=== PATIENT | female | born 1990 | race American Indian/Alaskan Native ===

== ENCOUNTER 2018-02-04 17:28 | Emergency (ER) | payer OTHER ==
[2018-02-04 17:45] VITALS: BP 166/99
[2018-02-04] MEDS ORDERED: ASPIRIN PO ONE (17:48)
[2018-02-04 19:43] LABS: INR 1.03 (0.87-1.13)
[2018-02-04 19:44] LABS: Partial Thromboplastin Time 30.9 Sec. (24.2-36.6)
[2018-02-04 19:49] LABS: BUN/Creatinine Ratio 6; Blood Urea Nitrogen 6 mg/dL (7-17); Calcium 9.8 mg/dL (8.4-10.2); Hematocrit 32.9 % (30.3-42.9); Hemoglobin 10.9 gm/dl (10.1-14.3); Hemolysis Index 28; Mean Corpuscular HGB Conc 33 % (30-34); Mean Corpuscular Hemoglobin 27 pg (28-32); Mean Corpuscular Volume 82 fl (79-97); Platelet Count 193 K/mm3 (140-440); Red Blood Count 3.99 M/mm3 (3.65-5.03); Red Cell Distribution Width 15.8 % (13.2-15.2)
[2018-02-04 19:52] LABS: Basophils % (Auto) 0.5 % (0.0-1.8); Eosinophils % (Auto) 2.5 % (0.0-4.3); Lymphocytes % (Auto) 29.2 % (13.4-35.0); Monocytes % (Auto) 8.2 % (0.0-7.3)
[2018-02-04 19:53] LABS: Eosinophils # (Auto) 0.1 K/mm3 (0.0-0.4); Lymphocytes # (Auto) 1.5 K/mm3 (1.2-5.4); Monocytes # (Auto) 0.4 K/mm3 (0.0-0.8)
[2018-02-04] MEDS ORDERED: ALUM-MAG HYDROX-SIMETH 200-200-20MG/5ML PO ONE (20:39)
[2018-02-04] MEDS ORDERED: K-DUR PO ONE (21:14)
--- NOTE | 2018-02-04 21:37 | Emergency Department Report ---
ED General Adult HPI - General Chief complaint: Chest Pain Stated complaint: CHEST PAIN/VOMITING BLOOD Time Seen by Provider: 02/04/18 20:19 Source: patient Mode of arrival: Ambulatory Limitations: No Limitations - History of Present Illness Initial comments: Ms lantigua is a 28 year-old woman with extensive reported PMH who presents with complaint of hematemesis. [place] and had three episodes of bright red hematemsis. Associated with substernal chest pain that does not radiate. Some pain with deep breathing. Allergic to aspirin. 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 All of her medical records are in [place]. of note, patient was seen within the last 2 weeks at [facility] for the same complaint. Patient signed release of records. No evidence of hematemesis as inpatient. had normal EGD. patient initially said she did not have an EGD, however then told us she had a seizure and must have forgotten. No evidence of metastatic disease on work-up. normal MRI brain. Patient without any vomiting here in ED. - Related Data Allergies Allergy/AdvReac Type Severity Reaction Status Date / Time acetaminophen Allergy Angioedema Verified 02/04/18 17:46 ibuprofen Allergy Angioedema Verified 02/04/18 17:46 oxycodone [From Percocet] Allergy Hives Verified 02/04/18 17:46 Penicillins Allergy Hives Verified 02/04/18 17:46 tramadol Allergy Hives Verified 02/04/18 17:46 ED Review of Systems ROS: Stated complaint: CHEST PAIN/VOMITING BLOOD Other details as noted in HPI Comment: All other systems reviewed and negative ED Past Medical Hx - Past Medical History Additional medical history: DVT'S,PE-2018 x3 separate times, CAD, chemo and radiation [id number] 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 Absent: tenderness, meningismus, lymphadenopathy - Respiratory Respiratory exam: Present: normal lung sounds bilaterally. Absent: respiratory distress, wheezes, rales, rhonchi - Cardiovascular Cardiovascular Exam: Present: regular rate, normal rhythm, normal heart sounds - GI/Abdominal GI/Abdominal exam: Present: soft. Absent: distended, tenderness, guarding, rebound - Extremities Exam Extremities exam: Present: normal inspection, full ROM. Absent: tenderness - Back Exam Back exam: Present: normal inspection. Absent: tenderness - Neurological Exam Neurological exam: Present: alert, oriented X3 - Psychiatric Psychiatric exam: Present: normal affect, normal mood - Skin Skin exam: Present: warm, dry, intact ED Course Vital Signs 02/04/18 02/04/18 17:39 21:51 Temperature 98.6 F Pulse Rate 105 H Respiratory 18 14 Rate Blood Pressure 166/99 O2 Sat by Pulse 98 98 Oximetry ED Medical Decision Making - Lab Data Result diagrams: 02/04/18 19:05 02/04/18 19:05 Lab Results 02/04/18 02/04/18 02/04/18 Range/Units 19:05 19:05 19:05 WBC 5.1 (4.5-11.0) K/mm3 RBC 3.99 (3.65-5.03) M/mm3 Hgb 10.9 (10.1-14.3) gm/dl Hct 32.9 (30.3-42.9) % MCV 82 (79-97) fl MCH 27 L (28-32) pg MCHC 33 (30-34) % RDW 15.8 H (13.2-15.2) % Plt Count 193 (140-440) K/mm3 Lymph % (Auto) 29.2 (13.4-35.0) % Rosebud % (Auto) 8.2 H (0.0-7.3) % Eos % (Auto) 2.5 (0.0-4.3) % Baso % (Auto) 0.5 (0.0-1.8) % Lymph # 1.5 (1.2-5.4) K/mm3 Rosebud # 0.4 (0.0-0.8) K/mm3 Eos # 0.1 (0.0-0.4) K/mm3 Baso # 0.0 (0.0-0.1) K/mm3 Add Manual Diff Complete Seg Neutrophils % 59.6 (40.0-70.0) % Seg Neutrophils # 3.0 (1.8-7.7) K/mm3 PT 14.0 (12.2-14.9) Sec. INR 1.03 (0.87-1.13) APTT 30.9 (24.2-36.6) Sec. D-Dimer < 135 (0-234) ng/mlDDU Sodium 139 (137-145) mmol/L Potassium 3.5 L (3.6-5.0) mmol/L Chloride 99.1 (98-107) mmol/L Carbon Dioxide 22 (22-30) mmol/L Anion Gap 21 mmol/L BUN 6 L (7-17) mg/dL Creatinine 1.0 (0.7-1.2) mg/dL Estimated GFR > 60 ml/min BUN/Creatinine Ratio 6 % Glucose 82 (65-100) mg/dL Calcium 9.8 (8.4-10.2) mg/dL Troponin T < 0.010 (0.00-0.029) ng/mL 02/04/18 Range/Units 21:10 WBC (4.5-11.0) K/mm3 RBC (3.65-5.03) M/mm3 Hgb (10.1-14.3) gm/dl Hct (30.3-42.9) % MCV (79-97) fl MCH (28-32) pg MCHC (30-34) % RDW (13.2-15.2) % Plt Count (140-440) K/mm3 Lymph % (Auto) (13.4-35.0) % Rosebud % (Auto) (0.0-7.3) % Eos % (Auto) (0.0-4.3) % Baso % (Auto) (0.0-1.8) % Lymph # (1.2-5.4) K/mm3 Rosebud # (0.0-0.8) K/mm3 Eos # (0.0-0.4) K/mm3 Baso # (0.0-0.1) K/mm3 Add Manual Diff Seg Neutrophils % (40.0-70.0) % Seg Neutrophils # (1.8-7.7) K/mm3 PT (12.2-14.9) Sec. INR (0.87-1.13) APTT (24.2-36.6) Sec. D-Dimer (0-234) ng/mlDDU Sodium (137-145) mmol/L Potassium (3.6-5.0) mmol/L Chloride (98-107) mmol/L Carbon Dioxide (22-30) mmol/L Anion Gap mmol/L BUN (7-17) mg/dL Creatinine (0.7-1.2) mg/dL Estimated GFR ml/min BUN/Creatinine Ratio % Glucose (65-100) mg/dL Calcium (8.4-10.2) mg/dL Troponin T < 0.010 (0.00-0.029) ng/mL - EKG Data 02/04/18 17:35 HR 95, sinus, normal axis, intervals wnl, no ST changes concerning for acute ischemia 02/04/18 21:45 HR 67, sinus, normal axis, intervals wnl, no ST changes concerning for acute ischemia, unchanged from previous - Radiology Data EXAM: XR CHEST ROUTINE 2V HISTORY: hematemesis TECHNIQUE: 2 views of the chest. PRIORS: None. FINDINGS: The cardiac silhouette is enlarged. Pulmonary vascularity appears normal. The lungs are clear. The bones and soft tissues are unremarkable. IMPRESSION: Cardiomegaly. - Medical Decision Making Ms lantigua is a 28 year-old woman who presents with hematemsis. None here in ED. Previous ED visit for hematemesis, normal EGD within the last two weeks. Again no vomiting noted while inpatient either. Exam unremarkable. VSS. Hgb 10.9. Trop negative x 2. EKG non-ischemic x 2. Has remained with stable vitals. no evidence of ACS. no evidence of PTX or pneumonia or ruptured esophagus. D- dimer negative and on eliquis, very low suspicion of PE. No evidence of vomiting or GI bleeding. Normal EGD within the last two weeks. Encourage continued follow-up and to return for further vomiting. Safe for dc to home. Endorses understanding of return precautions. VSS. Full medical records faxed from [facility]. They reached out to treating oncologist in [place] who has no record of her as a patient. Spoke with oncologist at [place] who also denies having her as a patient. Spoke with family in [place] who report no known breast CA or service. She was taken off eliquis upon hospital discharge. She had EEG and MRI, no evidence of seizures or abnormality on imaging. No PE or DVT on duplex. Normal EGD. very thorough inpatient work-up. Hgb unchanged from inpatient at [facility]. Critical care attestation.: If time is entered above; I have spent that time in minutes in the direct care of this critically ill patient, excluding procedure time. ED Disposition Clinical Impression: Hematemesis with nausea Chest pain Qualifiers: Chest pain type: other chest pain Qualified Code(s): R07.89 - Other chest pain Disposition: DC-01 TO HOME OR SELFCARE Is pt being admited?: No Does the pt Need Aspirin: No Condition: Stable Instructions: Chest Pain (ED), Acute Nausea and Vomiting (ED) Referrals: PRIMARY CARE, [Primary Care Provider] - 3-5 Days
--- NOTE | 2018-02-04 22:24 | XRay Report ---
FINAL REPORT EXAM: XR CHEST ROUTINE 2V HISTORY: hematemesis TECHNIQUE: 2 views of the chest. PRIORS: None. FINDINGS: The cardiac silhouette is enlarged. Pulmonary vascularity appears normal. The lungs are clear. The bones and soft tissues are unremarkable. IMPRESSION: Cardiomegaly.
== END 2018-02-04 23:49 | disposition home or self-care (01) ==
LOC: ED 17:28
DX: K92.0 Hematemesis (principal); R07.89 Other chest pain; Z88.6 Allergy status to analgesic agent; Z88.0 Allergy status to penicillin; Z88.8 Allergy status to other drugs, medicaments and biological substances
CPT/HCPCS: 36415; 71046; 80048; 84484; 85025; 85379; 85610; 85730; 93005; 93010; 99284

== ENCOUNTER 2018-02-05 03:10 | Emergency (ER) | payer OTHER ==
[2018-02-05] MEDS ORDERED: ASPIRIN PO ONE (03:32)
[2018-02-05] MEDS ORDERED: CATAPRES PO ONE ×2 (03:35→04:37)
[2018-02-05 04:07] LABS: Basophils % (Auto) 0.6 % (0.0-1.8); Eosinophils # (Auto) 0.1 K/mm3 (0.0-0.4); Eosinophils % (Auto) 3.6 % (0.0-4.3); Hematocrit 33.6 % (30.3-42.9); Lymphocytes # (Auto) 1.7 K/mm3 (1.2-5.4); Lymphocytes % (Auto) 40.2 % (13.4-35.0); Mean Corpuscular HGB Conc 33 % (30-34); Mean Corpuscular Hemoglobin 26 pg (28-32); Mean Corpuscular Volume 81 fl (79-97); Monocytes # (Auto) 0.3 K/mm3 (0.0-0.8); Monocytes % (Auto) 7.4 % (0.0-7.3); Platelet Count 211 K/mm3 (140-440); Red Blood Count 4.15 M/mm3 (3.65-5.03); Red Cell Distribution Width 15.5 % (13.2-15.2)
[2018-02-05 04:17] LABS: INR 0.93 (0.87-1.13); Partial Thromboplastin Time 29.1 Sec. (24.2-36.6)
[2018-02-05 04:21] LABS: BUN/Creatinine Ratio 6; Blood Urea Nitrogen 5 mg/dL (7-17); Calcium 9.6 mg/dL (8.4-10.2); Hemolysis Index 0
--- NOTE | 2018-02-05 04:40 | Emergency Department Report ---
HPI - General Chief Complaint: Chest Pain Time Seen by Provider: 02/05/18 04:25 - HPI HPI: The patient is a 28-year-old female presents for evaluation of chest pain. The patient reports constant chest pain for greater than the past 8 hours, midsternal, 10/10 in severity, sharp in quality, and worsened with dry heaving. She also reports nausea and one episode of emesis. The patient denies fever, cough, syncope, dyspnea, hemoptysis, unilateral leg swelling, oral contraceptive use, recent immobilization. 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 - Surgical History Hx Appendectomy: Yes Additional Surgical History: L-2 and L-3 cancerous lesion, ovarian cyst, left axillary lymph nodes removed, left breast lumpectomy - Social History Smoking Status: Never Smoker Substance Use Type: None - Medications Home Medications: Home Medications Medication Instructions Recorded Confirmed Last Taken Type Hydrochlorothiazide [HCTZ] 25 mg PO QDAY #30 tablet 02/05/18 Unknown Rx ED Review of Systems ROS: Stated complaint: CHEST PAIN,VOMITING Other details as noted in HPI Constitutional: denies: fever ENT: denies: throat or neck pain Respiratory: denies: cough, shortness of breath Cardiovascular: reports: chest pain Endocrine: denies unexplained weight loss or gain Gastrointestinal: denies: abdominal pain, nausea Genitourinary: denies: dysuria Musculoskeletal: denies: leg swelling Skin: denies: rash Neurological: denies: headache Hematological/Lymphatic: denies: easy bleeding or easy bruising Psych: denies sadness or hopelessness Physical Exam - Physical Exam Vital Signs: Vital Signs 02/05/18 03:50 Pulse Rate 84 Blood Pressure 199/145 Physical Exam: General: well-nourished, well-developed, no acute distress Head: Normocephalic, atraumatic Eyes: normal sclera ENT: Mucous membranes are pink and moist Neck: trachea midline, neck supple, No neck stiffness, no cervical adenopathy Respiratory: Breath sounds equal bilaterally, no wheezing, rales, or rhonchi Cardio: S1 and S2 present, no murmurs, rubs, gallops, capillary refill is brisk Abdomen: Normoactive bowel sounds, soft abdomen, no rigidity, no guarding or rebound tenderness Chest WALL/Back: No tenderness to palpation of the chest wall, no CVA tenderness with percussion Musc: No pitting edema Skin: No rash Neuro: no facial drooping, normal speech Psych: Normal affect ED Course Vital Signs 02/05/18 03:50 Pulse Rate 84 Blood Pressure 199/145 ED Medical Decision Making - Lab Data Result diagrams: 02/05/18 03:41 02/05/18 03:41 - Medical Decision Making The patient was seen and examined by myself. The patient is placed on a compliance monitor and continuous pulse ox. On initial evaluation, the patient was found to be in no distress. EKG was negative for findings suggestive of acute cardiac infarct. Labs and imaging are obtained. The patient is given a tablet of clonidine for her elevated blood pressure and an IM injection for her chest pain. Lab results were non-concerning including levels of troponin, WBC, hemoglobin, hematocrit, electrolytes, renal function. Medical records are reviewed and revealed that the patient falsely reported histories of cancer and blood clots at [facility]. Additionally the patient received very thorough workup during hospital admission at [facility] recently, including imaging ruling out DVT or PE. The patient received chest x-ray at this ED earlier tonight. X-ray was reviewed by myself and was negative. As the patient has a VIANEY risk score less than 2, and a well's score less than 2, the patient is at low risk of ACS or pulmonary emboli etiology of their symptoms. The patient is stable for discharge with outpatient follow-up. The patient is given follow-up and return instructions. The patient expressed understanding and agreed with the plan. The patient is discharged in stable condition. Critical care attestation.: If time is entered above; I have spent that time in minutes in the direct care of this critically ill patient, excluding procedure time. ED Disposition Clinical Impression: Hypertensive urgency, Acute chest pain Disposition: - TO HOME OR SELFCARE Is pt being admited?: No Does the pt Need Aspirin: No Condition: Stable Instructions: Chest Pain (ED), Hypertension (ED) Prescriptions: Hydrochlorothiazide [HCTZ] 25 mg PO QDAY #30 tablet Referrals: [facility] [Outside] - 3-5 Days Time of Disposition: 04:39
[2018-02-05] MEDS ORDERED: NORCO 5/325 PO ONE (04:45)
[2018-02-05] MEDS ORDERED: ZOFRAN ODT PO ONE (04:45)
[2018-02-05] MEDS ORDERED: MORPHINE IM ONE (04:46)
[2018-02-05] MEDS ORDERED: BENADRYL PO ONE (04:47)
[2018-02-05] MEDS ORDERED: NITROSTAT SL ONE (04:53)
[2018-02-05 05:38] VITALS: BP 121/83
== END 2018-02-05 05:44 | disposition home or self-care (01) ==
LOC: ED 03:10
DX: I10 Essential (primary) hypertension (principal); R07.89 Other chest pain; J45.909 Unspecified asthma, uncomplicated; Z86.711 Personal history of pulmonary embolism; Z86.718 Personal history of other venous thrombosis and embolism; Z90.49 Acquired absence of other specified parts of digestive tract; Z85.3 Personal history of malignant neoplasm of breast
CPT/HCPCS: 36415; 80048; 84484; 84703; 85025; 85610; 85730; 93005; 93010; 96372; 99284; J2270; Q0162

== ENCOUNTER 2019-05-08 16:23 | Inpatient (IN) | payer OTHER ==
--- NOTE | 2019-05-08 16:47 | Emergency Department Report ---
Blank Doc - Documentation Documentation: 29-year-old female that presents with chest pain, SOB, and vomiting bright red colored blood. Stated has radiation to left arm. This initial assessment/diagnostic orders/clinical plan/treatment(s) is/are subject to change based on patient's health status, clinical progression and re- assessment by fellow clinical providers in the ED. Further treatment and workup at subsequent clinical providers discretion. Patient/guardians urged not to elope from the ED as their condition may be serious if not clinically assessed and managed. Initial orders include: 1- Patient sent to MAIN ED for further evaluation and treatment 2- labs 3- EKG 4- CXR
[2019-05-08 18:01] LABS: Alanine Aminotransferase 17 units/L (7-56); Albumin 4.4 g/dL (3.9-5); BUN/Creatinine Ratio 15; Blood Urea Nitrogen 12 mg/dL (7-17); Calcium 9.5 mg/dL (8.4-10.2); Hemolysis Index 9
[2019-05-08 18:07] LABS: Hematocrit 39.9 % (30.3-42.9); Hemoglobin 12.8 gm/dl (10.1-14.3); Mean Corpuscular HGB Conc 32 % (30-34); Mean Corpuscular Volume 81 fl (79-97); Platelet Count 202 K/mm3 (140-440); Red Blood Count 4.93 M/mm3 (3.65-5.03); Red Cell Distribution Width 16.4 % (13.2-15.2)
--- NOTE | 2019-05-08 18:17 | Event Note ---
ED Screening Note ED Screening Note: PT COMES TO ER WITH CHEST, ABD AND BACK PAIN SHE IS UNDER THE CARE OF DR ARANA AT [facility] FOR STAGE 3-4 BREAST CA DX IN 2013 THEN BACK IN 2015 ON XELOTA HAD RAD LAST THEY ARE ABOUT TO CHANGE HER TO ANOTHER CHEMO PSH LYMPH NODE REMOVAL R BREAST TUMOR REMOVED FROM L2L3 BACK OVARIAN CYST REMOVAL [place] PMH CAD - DETAILS UNKNOWN- PT STATES CATHETER WAS INSERTED BETWEEN RIBS AND THEY TOLD HER SHE HAD CAD-- AT [facility] PE 8- IVC FILTER HTN ASTHMA SZ DISORDER- STRESS INDUCED RX DEPAKOTE COUMADIN XERLOTA LOVENOX IF NEEDED ALBUTEROL LOPRESSOR LABS PENDING GIVEN HX CTA ORDERED This initial assessment/diagnostic orders/clinical plan/treatment(s) is/are subject to change based on patients health status, clinical progression and re- assessment by fellow clinical providers in the ED. Further treatment and workup at subsequent clinical providers discretion. Patient/guardian urged not to elope from the ED as their condition may be serious if not clinically assessed and managed. Initial orders include:
[2019-05-08 18:19] LABS: INR 0.85 (0.87-1.13)
[2019-05-08 18:20] LABS: Partial Thromboplastin Time 28.2 Sec. (24.2-36.6)
--- NOTE | 2019-05-08 18:56 | Emergency Department Report ---
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 Patient reports onset of symptoms on yesterday. Chest pain is sharp, left-sided, radiating to the left arm and left neck. Patient states pain is worse when lying flat. She reports left lower leg pain as well. States she is currently on Coumadin and Lovenox. Patient states she had one episode of hematemesis, denies any bloody stools. Patient reports she had a heart cath 8 years ago following a cardiac arrest, status post stents repl aced, no pacer or defibrillator was placed. Patient reports she had an abnormal stress test recently. States took nitro without relief. -: days(s) (2) Onset: during rest Pain Location: left chest Pain Radiation: LUE, neck Severity: moderate Severity scale (0 -10): 7 Quality: sharp Consistency: intermittent Improves With: nothing Worsens With: supine re: nausea, vomting (reports hematemesis), dyspnea. denies: diaphoresis Other Symptoms: denies: cough, fever - Related Data Home Medications Medication Instructions Recorded Confirmed Last Taken Albuterol Sulfate [Proventil Hfa] 6.7 gm IH PRN 05/09/19 05/09/19 Unknown Apixaban [Eliquis] 5 mg PO BID 05/09/19 05/09/19 Unknown Capecitabine [Xeloda] 250 mg PO DAILY 05/09/19 05/09/19 Unknown Carvedilol [Coreg] 12.5 mg PO BID 05/09/19 05/09/19 Unknown Divalproex ER [DepaKOTE ER] 500 mg PO BID 05/09/19 05/09/19 Unknown Lisinopril [Zestril] 20 mg PO QDAY 05/09/19 05/09/19 Unknown Metoprolol [Lopressor TAB] 37.5 mg PO BID 05/09/19 05/09/19 Unknown Zolpidem [Ambien] 5 mg PO QHS PRN 05/09/19 05/09/19 Unknown Allergies Allergy/AdvReac Type Severity Reaction Status Date / Time acetaminophen Allergy Angioedema Verified 02/04/18 17:46 ibuprofen Allergy Angioedema Verified 02/04/18 17:46 oxycodone [From Percocet] Allergy Hives Verified 02/04/18 17:46 Penicillins Allergy Hives Verified 02/04/18 17:46 tramadol Allergy Hives Verified 02/04/18 17:46 Heart Score - HEART Score History: Moderately suspicious EKG: Non-specific Age: < 45 Risk factors: > 3 risk factors or hx of atherosclerotic disease Troponin: < normal limit HEART Score: 4 ED Review of Systems ROS: Stated complaint: CHEST/BACK/ABD PAIN Other details as noted in HPI Comment: All other systems reviewed and negative Constitutional: denies: chills, fever Respiratory: shortness of breath. denies: cough Cardiovascular: chest pain Gastrointestinal: nausea, hematemesis. 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 - Surgical History Past Surgical History?: Yes Hx Appendectomy: Yes Additional Surgical History: L-2 and L-3 cancerous lesion, ovarian cyst, left axillary lymph nodes removed, left breast lumpectomy - Social History Smoking Status: Never Smoker Substance Use Type: None - Medications Home Medications: Home Medications Medication Instructions Recorded Confirmed Last Taken Type Albuterol Sulfate [Proventil Hfa] 6.7 gm IH PRN 05/09/19 05/09/19 Unknown History Apixaban [Eliquis] 5 mg PO BID 05/09/19 05/09/19 Unknown History Capecitabine [Xeloda] 250 mg PO DAILY 05/09/19 05/09/19 Unknown History Carvedilol [Coreg] 12.5 mg PO BID 05/09/19 05/09/19 Unknown History Divalproex ER [DepaKOTE ER] 500 mg PO BID 05/09/19 05/09/19 Unknown History Lisinopril [Zestril] 20 mg PO QDAY 05/09/19 05/09/19 Unknown History Metoprolol [Lopressor TAB] 37.5 mg PO BID 05/09/19 05/09/19 Unknown History Zolpidem [Ambien] 5 mg PO QHS PRN 05/09/19 05/09/19 Unknown History ED Physical Exam - General Limitations: No Limitations General appearance: alert, in no apparent distress - Head Head exam: Present: atraumatic, normocephalic - Eye Eye exam: Present: normal appearance, PERRL, EOMI - ENT ENT exam: Present: mucous membranes moist - Neck Neck exam: Present: normal inspection - Respiratory Respiratory exam: Present: normal lung sounds bilaterally. Absent: respiratory distress - Cardiovascular Cardiovascular Exam: Present: regular rate, normal rhythm - GI/Abdominal GI/Abdominal exam: Present: soft. Absent: distended, tenderness - Extremities Exam Extremities exam: Present: calf tenderness (on left) - Neurological Exam Neurological exam: Present: alert, oriented X3 - Psychiatric Psychiatric exam: Present: normal affect, normal mood - Skin Skin exam: Present: warm, dry, intact, normal color ED Course Vital Signs 05/08/19 05/08/19 05/08/19 16:32 17:50 17:59 Temperature 98.6 F Pulse Rate 79 73 78 Respiratory 16 13 16 Rate Blood Pressure 190/121 Blood Pressure 240/147 [Right] O2 Sat by Pulse 100 100 100 Oximetry 05/08/19 05/08/19 05/08/19 18:00 18:16 18:30 Temperature Pulse Rate 75 76 64 Respiratory 12 19 16 Rate Blood Pressure 240/147 212/146 Blood Pressure [Right] O2 Sat by Pulse 99 99 99 Oximetry 05/08/19 05/08/19 05/08/19 18:46 19:00 19:16 Temperature Pulse Rate 76 60 73 Respiratory 11 L 10 L 18 Rate Blood Pressure 211/139 235/159 175/135 Blood Pressure [Right] O2 Sat by Pulse 98 99 98 Oximetry 05/08/19 05/08/19 05/08/19 19:30 19:45 20:00 Temperature Pulse Rate 83 80 69 Respiratory 12 14 20 Rate Blood Pressure 177/144 172/114 172/114 Blood Pressure [Right] O2 Sat by Pulse 99 95 98 Oximetry 05/08/19 05/08/19 05/08/19 20:16 20:30 20:45 Temperature Pulse Rate 74 70 81 Respiratory 10 L 9 L 11 L Rate Blood Pressure 183/108 182/121 156/119 Blood Pressure [Right] O2 Sat by Pulse 98 94 97 Oximetry 05/08/19 05/08/19 05/08/19 21:00 21:16 21:30 Temperature Pulse Rate 69 69 75 Respiratory 15 13 32 H Rate Blood Pressure 156/119 172/119 172/119 Blood Pressure [Right] O2 Sat by Pulse 96 98 94 Oximetry 05/08/19 05/08/19 05/08/19 21:46 22:00 22:50 Temperature Pulse Rate 83 81 77 Respiratory 13 11 L 17 Rate Blood Pressure 171/85 190/144 165/108 Blood Pressure [Right] O2 Sat by Pulse 97 97 96 Oximetry 05/08/19 05/08/19 05/08/19 23:00 23:16 23:30 Temperature Pulse Rate 75 80 87 Respiratory 13 11 L 15 Rate Blood Pressure 165/108 141/112 141/112 Blood Pressure [Right] O2 Sat by Pulse 100 97 97 Oximetry 05/08/19 05/09/19 05/09/19 23:46 00:00 00:04 Temperature Pulse Rate 83 82 82 Respiratory 13 12 13 Rate Blood Pressure 173/108 165/126 165/126 Blood Pressure [Right] O2 Sat by Pulse 96 98 99 Oximetry 05/09/19 05/09/19 05/09/19 00:22 00:30 00:40 Temperature Pulse Rate 77 74 74 Respiratory 14 24 15 Rate Blood Pressure 139/93 151/104 200/168 Blood Pressure [Right] O2 Sat by Pulse 98 100 98 Oximetry 05/09/19 00:50 Temperature Pulse Rate 74 Respiratory 26 H Rate Blood Pressure 200/168 Blood Pressure [Right] O2 Sat by Pulse 98 Oximetry ED Medical Decision Making - Lab Data Result diagrams: 05/08/19 17:14 05/08/19 17:14 - EKG Data -: EKG Interpreted by Me EKG shows normal: sinus rhythm, QRS complexes, ST-T waves Rate: normal - EKG Data Interpretation: no acute changes, other (occasional PVCs present) - Radiology Data Radiology results: report reviewed, image reviewed - Medical Decision Making 29-year-old female with extensive past medical history presents to ED with chest pain or shortness of breath. O2 sats normal, no respiratory distress. History of DVT and PE in the past, currently with IVC filter, and taking Lovenox and Coumadin. INR is subtherapeutic. VQ scan shows low probability for PE. Troponin negative 2, EKG shows no ST changes. Patient with hypertensive emergency. Blood pressure improved with hydralazine and labetalol. She also reported an episode of hematemesis home. No hematemesis here in ED, pt showed me a cellphone picture of blood clots that she vomited earlier today. Hemoglobin is normal. Patient given Protonix. Will admit to hospitalist, Dr Kearns, for further management. - Differential Diagnosis HTN emergency, ACS, PE, pneumonia, gastric ulcer Critical Care Time: Yes Critical care time in (mins) excluding proc time.: 35 Critical care attestation.: If time is entered above; I have spent that time in minutes in the direct care of this critically ill patient, excluding procedure time. Critical Care Time: 35 min ED Disposition Clinical Impression: Hypertensive emergency, Acute chest pain, Upper GI bleed Disposition: OP ADMIT IP TO THIS HOSP Is pt being admited?: Yes Condition: Stable Time of Disposition: 23:37
[2019-05-08] MEDS ORDERED: DILAUDID IV ONE ×2 (18:57→22:52)
[2019-05-08] MEDS ORDERED: APRESOLINE IV ONE ×2 (18:57→21:07)
[2019-05-08] MEDS ORDERED: BENADRYL IV ONE ×2 (18:57→22:52)
--- NOTE | 2019-05-08 19:42 | XRay Report ---
CHEST 1 VIEW INDICATION / CLINICAL INFORMATION: chest pain. COMPARISON: 02/04/2018 FINDINGS: SUPPORT DEVICES: None. HEART / MEDIASTINUM: Minimally enlarged but stable. LUNGS / PLEURA: No significant pulmonary or pleural abnormality. No pneumothorax. ADDITIONAL FINDINGS: No significant additional findings. IMPRESSION: 1. No significant change Signer Name: Hari Mock MD Signed: 05/08/2019 7:38 PM Workstation Name: [id number]
[2019-05-08 21:26] LABS: Basophils % (Manual) 0 % (0.0-1.8); Total Cells Counted 100
[2019-05-08 21:27] LABS: Anisocytosis 1+; Hypochromasia 1+; Ovalocytes Few; Platelet Estimate Consistent w Auto
--- NOTE | 2019-05-08 23:12 | Nuclear Medicine Report ---
NM lung scan perf/vent INDICATION / CLINICAL INFORMATION: sob, chest pain, hx of PE. TECHNIQUE: Dose / Agent / Route: 4.66mCi technetium 99m MAA IV and 17.32mCi xenon-133 inhaled COMPARISON: 05/08/2019 chest x-ray FINDINGS: No segmental or subsegmental perfusion defects. Ventilation images are normal. IMPRESSION: 1. Both ventilation and perfusion images are normal. Low probability for pulmonary embolism Signer Name: Olvin Mancilla MD Signed: 05/08/2019 11:07 PM Workstation Name: [id number]
[2019-05-08] MEDS ORDERED: NORMODYNE IV ONE (23:37)
[2019-05-08] MEDS ORDERED: PROTONIX IV ONE (23:39)
[2019-05-09] MEDS ORDERED: NORMODYNE IV ONE (00:14)
[2019-05-09] MEDS ORDERED: PROTONIX IV ONE (00:14)
[2019-05-09] MEDS ORDERED: NITROSTAT SL PRN (01:15)
[2019-05-09] MEDS ORDERED: ZOFRAN IV PRN (01:19)
[2019-05-09] MEDS: KCL 10MEQ/100ML 10 MEQ/100 ML BAG IV SCH ×2 (03:03→05:06)
[2019-05-09] MEDS ORDERED: KCL 20 MEQ in NACL 0.9% 250ML 250 ML IV ONE (03:15)
[2019-05-09] MEDS: BENADRYL IV PRN ×2 (03:17→08:52)
[2019-05-09] MEDS: DILAUDID IV PRN ×2 (03:17→08:01)
--- NOTE | 2019-05-09 05:36 | History and Physical Report ---
CHIEF COMPLAINT: Chest pain. Other complaint includes hematemesis and abdominal pain. HISTORY OF PRESENT ILLNESS: The patient is a 29-year-old female who presented to the Emergency Room with complaint of chest pain. The patient said the pain is sharp in consistency and located in the precordial area and radiating to the left arm and left side of the neck and pain is worse when she lays flat on the bed. There is also a history of left leg pain as well and the patient complained about hematemesis and said that she is currently taking Coumadin and Lovenox because of multiple history of PE and DVT in the past. The patient denied history of hematochezia or melena and said that she had a cardiac catheterization done about 8 years ago following cardiac arrest. The patient denies history of cough and complained about associated shortness of breath. PAST MEDICAL HISTORY: Past medical history is pertinent for pulmonary embolism, deep vein thrombosis, cardiac arrest, coronary artery disease, asthma, metastatic breast cancer, hypertension, and seizure disorder. PAST SURGICAL HISTORY: Past surgical history is pertinent for appendectomy, surgery in the second and third lumbar costovertebral area because of cancerous metastasis. Also, the patient has had ovarian cyst removal and left axillary node removal as well as left breast lumpectomy. The patient also has green filter placed because of thromboembolic diseases. FAMILY HISTORY: Reviewed and noncontributory. SOCIAL HISTORY: The patient does not smoke, does not drink alcohol, and does not use illicit drugs. MEDICATIONS: The patient is on albuterol inhaler as needed for shortness of breath. The patient is also on apixaban 5 mg by mouth twice daily and Xeloda 250 mg by mouth daily. Also, the patient is on Coreg 12.5 mg by mouth daily and Depakote 500 mg by mouth twice daily and lisinopril 20 mg by mouth daily, Lopressor 37.5 mg by mouth twice daily and zolpidem 5 mg by mouth at bedtime. ALLERGIES: THE PATIENT IS ALLERGIC TO ACETAMINOPHEN, IBUPROFEN, OXYCODONE, PENICILLIN, AND TRAMADOL. REVIEW OF SYSTEMS: CONSTITUTIONAL: There is no fever, no chills, and no diaphoresis. HEENT: There is no headache or sore throat. CARDIOVASCULAR SYSTEM: Chest pain is present. No orthopnea. RESPIRATORY SYSTEM: Shortness of breath is present. No cough. GASTROINTESTINAL SYSTEM: Hematemesis is present. No hematochezia, no melena and no abdominal pain, diarrhea or constipation. NEUROLOGICAL SYSTEM: There is no numbness, no dizziness, and no altered mental status. MUSCULOSKELETAL SYSTEM: There is no joint pain or swelling. DERMATOLOGICAL SYSTEM: There is no skin rash or itching. GENITOURINARY SYSTEM: There is no dysuria, hematuria, or flank pain. Rest of system review is normal. PHYSICAL EXAMINATION: GENERAL: At the time of exam, the patient was found to be alert, oriented x 3 and not in acute distress. VITAL SIGNS: At the time of initial presentation showed temperature of 98.6 degrees Fahrenheit, pulse of 79, respirations 16, blood pressure 190/121 with repeat blood pressure eventually coming down to about 133/88 after treatment. The patient's O2 sat was 99% on room air. HEENT: Showed pupils to be equal, round, reactive to light and accommodating. Extraocular muscles are intact. NECK: Supple with no JVD or carotid bruit. CARDIOVASCULAR SYSTEM: Showed normal first and second heart sounds with no gallops or murmurs. RESPIRATORY SYSTEM: Show good air entry on both sides of the lungs with no abnormal breath sounds. GASTROINTESTINAL SYSTEM: Show abdomen to be full, soft, and nontender with no organomegaly or rigidity. NEUROLOGIC: Shows no focal deficit. MUSCULOSKELETAL SYSTEM: Show no joint swelling or tenderness. DERMATOLOGICAL SYSTEM: Showed no skin rash. GENITOURINARY SYSTEM: Showing no costovertebral angle tenderness. PERTINENT LABORATORY AND IMAGING STUDIES: The patient had chest x-ray done that shows no acute cardiopulmonary lesion and the patient had V/Q scan done that shows low probability for pulmonary embolism. Lab results, the patient's CBC showed low white count of 3.6, normal hemoglobin, normal hematocrit with CBC differential showing high lymphocyte count of 60%. Coagulation studies were unremarkable. The patient's chemistry showed low potassium level of 3.3, otherwise rest of chemistry is unremarkable. test is negative and troponin level came back unremarkable. DIAGNOSES: 1. Chest pain, rule out myocardial infarction. 2. Gastrointestinal bleeding. 3. Hypertensive crisis. 4. Hypokalemia, low potassium. PLAN OF CARE: 1. The patient will be admitted as inpatient to telemetry. 2. The patient will have cardiac enzymes involving troponin, total CK, and CK-MB checked serially every 6 hours x 2 more levels. 3. The patient will have hemoglobin and hematocrit checked every 6 hours x 3 more levels. 4. The patient will remain n.p.o. until seen by both the fruit buying grader and the client experience consultant. 5. The patient will have Gastroenterology consult with [facility] with the name of Dr. Sánchez Tam listed. 6. The patient will have Cardiology consult with Dr. Page because of chest pain with hypertensive crisis and gastrointestinal bleed. 7. The patient will be on nitro paste half inch to anterior chest wall q.i.d. and Nitrostat 0.4 mg sublingual every 5 minutes as needed for breakthrough chest pain. 8. The patient will be on IV Dilaudid 2 mg every 4 hours as needed for pain and IV Zofran 4 mg every 8 hours for nausea and vomiting. 9. The patient will be on IV Protonix 40 mg every 12 hours. 10. The patient will be on oxygen by nasal cannula and will remain n.p.o. until evaluated. 11. DVT prophylaxis will be through sequential compressive device. 12. The patient will have IV potassium chloride 20 mEq in 200 mL of normal saline. 13. The patient will have basic metabolic panel checked this morning. JOB# [id number] OCN/NTS MTDD
[2019-05-09 06:08] LABS: Hematocrit 40.8 % (30.3-42.9); Hemoglobin 13.4 gm/dl (10.1-14.3)
[2019-05-09 06:28] LABS: Creatine Kinase MB 1.8 ng/mL (0.0-4.0)
[2019-05-09] MEDS: NITRO-BID 2% TP SCH ×3 (06:45→11:48)
[2019-05-09] MEDS ORDERED: PROTONIX IV SCH (10:00)
--- NOTE | 2019-05-09 10:13 | Gastroenterology Consultation ---
History of Present Illness - Reason for Consult Consult date: 05/09/19 GI bleed Requesting physician: CHAYA MARTE - History of Present Illness Patient is a 29 y/o female with reported history of DVT/PE s/p IVC filter, CAD, and metastatic breast cancer who presented to ED with c/p CP and vomiting blood to which GI has been consulted. Patient is well known to our service. She has been seen multiple times by our group at different hospitals (Last consult at [facility] in November of this year) for similar complaints with an extensive previous workup found to be negative including cardiac evaluation (stress echo 2017), imaging, and multiple EGDs only showing mild gastritis (EGD 01/01/2018, EGD 01/06/2018, and last EGD 12/06/2018; bx negative for H pylori). According to chart review, during hospitalization in December 2017 it was informed/explained to patient after extensive evaluation (including review of records from [place] where patient reports prior tx with no cancer, PE, or DVT documented) that in fact she DID NOT have cancer or PE/DVT and was told she does not need to take Xeloda or any anticoagulation. 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 This morning patient was sitting in bed w/o acute distress looking on her cell phone. Reports feeling better with CP improving and no active signs of bleeding this am (of note there has been no witnessed signs of GI bleeding since admission; patient showed a picture on her phone of bloody emesis while in ED to which she has also done with previous hospitalizations). Denies fever, SOB, wt loss, dysphagia/odynophagia, melena, diarrhea, or hematochezia. Admits to occasionally constipation with no BM in the last couple of days (underwent colonoscopy last year in 2018 as well showing polyp and hemorrhoids). Past History Past Medical History: other (see HPI) Past Surgical History: cholecystectomy Social history: other (marijuana). denies: smoking, alcohol abuse Medications and Allergies Allergies Allergy/AdvReac Type Severity Reaction Status Date / Time acetaminophen Allergy Angioedema Verified 02/04/18 17:46 ibuprofen Allergy Angioedema Verified 02/04/18 17:46 oxycodone [From Percocet] Allergy Hives Verified 02/04/18 17:46 Penicillins Allergy Hives Verified 02/04/18 17:46 tramadol Allergy Hives Verified 02/04/18 17:46 Home Medications Medication Instructions Recorded Confirmed Last Taken Type Albuterol Sulfate [Proventil Hfa] 6.7 gm IH PRN 05/09/19 05/09/19 Unknown History Apixaban [Eliquis] 5 mg PO BID 05/09/19 05/09/19 Unknown History Capecitabine [Xeloda] 250 mg PO DAILY 05/09/19 05/09/19 Unknown History Carvedilol [Coreg] 12.5 mg PO BID 05/09/19 05/09/19 Unknown History Divalproex ER [DepaKOTE ER] 500 mg PO BID 05/09/19 05/09/19 Unknown History Lisinopril [Zestril] 20 mg PO QDAY 05/09/19 05/09/19 Unknown History Metoprolol [Lopressor TAB] 37.5 mg PO BID 05/09/19 05/09/19 Unknown History Zolpidem [Ambien] 5 mg PO QHS PRN 05/09/19 05/09/19 Unknown History Active Meds: Active Medications Diphenhydramine HCl (Benadryl) 25 mg IV Q6H PRN PRN Reason: Itching Last Admin: 05/09/19 08:52 Dose: 25 mg Documented by: Hydromorphone HCl (Dilaudid) 2 mg IV Q4H PRN PRN Reason: Pain , Severe (7-10) Last Admin: 05/09/19 08:01 Dose: 2 mg Documented by: Nitroglycerin (Nitro-Bid 2%) 0.5 inch TP QIDNTG [facility]; Protocol Last Admin: 05/09/19 06:45 Dose: Not Given Documented by: Nitroglycerin (Nitrostat) 0.4 mg SL .Q5MIN PRN PRN Reason: Chest Pain Ondansetron HCl (Zofran) 4 mg IV Q8H PRN PRN Reason: Nausea And Vomiting Pantoprazole Sodium (Protonix) 40 mg IV BID [facility] Last Admin: 05/09/19 09:00 Dose: 40 mg Documented by: medications reviewed/updated as required Review of Systems - Review of Systems All systems: negative Cardiovascular: chest pain Gastrointestinal: hematemesis Exam - Constitutional Vital Signs: Temp Pulse Resp BP Pulse Ox 98.3 F 69 20 173/112 97 10/17/19 08:13 05/09/19 08:13 05/09/19 08:13 05/09/19 08:13 05/09/19 08:13 General appearance: no acute distress, obese - EENT Eyes: PERRL, EOM intact ENT: hearing intact - Respiratory Respiratory effort: normal Respiratory: bilateral: CTA - Cardiovascular Rhythm: regular - Gastrointestinal General gastrointestinal: Present: soft, non-tender, non-distended, normal bowel sounds - Neurologic Neurological: alert and oriented x3 - Labs CBC & Chem 7: 05/09/19 05:30 05/08/19 17:14 Lab Results: Laboratory Results - last 24 hr 05/08/19 05/08/19 05/08/19 17:14 17:14 17:14 WBC 3.6 L RBC 4.93 Hgb 12.8 Hct 39.9 MCV 81 MCH 26 L MCHC 32 RDW 16.4 H Plt Count 202 Add Manual Diff Complete Total Counted 100 Seg Neutrophils % [employer] Seg Neuts % (Manual) 29.0 L Band Neutrophils % 0 Lymphocytes % (Manual) 60.0 H Reactive Lymphs % (Man) 0 Monocytes % (Manual) 7.0 Eosinophils % (Manual) 4.0 Basophils % (Manual) 0 Metamyelocytes % 0 Myelocytes % 0 Promyelocytes % 0 Blast Cells % 0 Nucleated RBC % Not Reportable Seg Neutrophils # Man 1.0 L Band Neutrophils # 0.0 Lymphocytes # (Manual) 2.2 Abs React Lymphs (Man) 0.0 Monocytes # (Manual) 0.3 Eosinophils # (Manual) 0.1 Basophils # (Manual) 0.0 Metamyelocytes # 0.0 Myelocytes # 0.0 Promyelocytes # 0.0 Blast Cells # 0.0 WBC Morphology Not Reportable Hypersegmented Neuts Not Reportable Hyposegmented Neuts Not Reportable Hypogranular Neuts Not Reportable Smudge Cells Not Reportable Toxic Granulation Not Reportable Toxic Vacuolation Not Reportable Dohle Bodies Not Reportable Pelger-Huet Anomaly Not Reportable Yenni Rods Not Reportable Platelet Estimate Consistent w auto Clumped Platelets Not Reportable Plt Clumps, EDTA Not Reportable Large Platelets Not Reportable Giant Platelets Not Reportable Platelet Satelliting Not Reportable Plt Morphology Comment Not Reportable RBC Morphology Not Reportable Dimorphic RBCs Not Reportable Polychromasia Not Reportable Hypochromasia 1+ Poikilocytosis Not Reportable Anisocytosis 1+ Microcytosis Not Reportable Macrocytosis Not Reportable Spherocytes Not Reportable Pappenheimer Bodies Not Reportable Sickle Cells Not Reportable Target Cells Not Reportable Tear Drop Cells Not Reportable Ovalocytes Few Helmet Cells Not Reportable Clancy-Gu-Win Bodies Not Reportable Dimmitt Rings Not Reportable Berna Cells Not Reportable Bite Cells Not Reportable Crenated Cell Not Reportable Elliptocytes Not Reportable Acanthocytes (Spur) Not Reportable Rouleaux Not Reportable Hemoglobin C Crystals Not Reportable Schistocytes Not Reportable Malaria parasites Not Reportable Abdiel Bodies Not Reportable Hem Pathologist Commnt No PT 11.4 L INR 0.85 L APTT 28.2 Sodium 142 Potassium 3.3 L Chloride 102.5 Carbon Dioxide 24 Anion Gap 19 BUN 12 Creatinine 0.8 Estimated GFR > 60 BUN/Creatinine Ratio 15 Glucose 92 Calcium 9.5 Total Bilirubin 0.20 AST 15 ALT 17 Alkaline Phosphatase 53 Total Creatine Kinase CK-MB (CK-2) CK-MB (CK-2) Rel Index Troponin T < 0.010 Total Protein 8.3 H Albumin 4.4 Albumin/Globulin Ratio 1.1 Lipase 37 HCG, Qual Blood Type Antibody Screen 05/08/19 05/08/19 05/08/19 17:14 17:16 19:31 WBC RBC Hgb Hct MCV MCH MCHC RDW Plt Count Add Manual Diff Total Counted Seg Neutrophils % Seg Neuts % (Manual) Band Neutrophils % Lymphocytes % (Manual) Reactive Lymphs % (Man) Monocytes % (Manual) Eosinophils % (Manual) Basophils % (Manual) Metamyelocytes % Myelocytes % Promyelocytes % Blast Cells % Nucleated RBC % Seg Neutrophils # Man Band Neutrophils # Lymphocytes # (Manual) Abs React Lymphs (Man) Monocytes # (Manual) Eosinophils # (Manual) Basophils # (Manual) Metamyelocytes # Myelocytes # Promyelocytes # Blast Cells # WBC Morphology Hypersegmented Neuts Hyposegmented Neuts Hypogranular Neuts Smudge Cells Toxic Granulation Toxic Vacuolation Dohle Bodies Pelger-Huet Anomaly Yenni Rods Platelet Estimate Clumped Platelets Plt Clumps, EDTA Large Platelets Giant Platelets Platelet Satelliting Plt Morphology Comment RBC Morphology Dimorphic RBCs Polychromasia Hypochromasia Poikilocytosis Anisocytosis Microcytosis Macrocytosis Spherocytes Pappenheimer Bodies Sickle Cells Target Cells Tear Drop Cells Ovalocytes Helmet Cells Clancy-Gu-Win Bodies Dimmitt Rings Berna Cells Bite Cells Crenated Cell Elliptocytes Acanthocytes (Spur) Rouleaux Hemoglobin C Crystals Schistocytes Malaria parasites Abdiel Bodies Hem Pathologist Commnt PT INR APTT Sodium Potassium Chloride Carbon Dioxide Anion Gap BUN Creatinine Estimated GFR BUN/Creatinine Ratio Glucose Calcium Total Bilirubin AST ALT Alkaline Phosphatase Total Creatine Kinase CK-MB (CK-2) CK-MB (CK-2) Rel Index Troponin T < 0.010 Total Protein Albumin Albumin/Globulin Ratio Lipase HCG, Qual Negative Blood Type A POSITIVE Antibody Screen Negative 05/09/19 05/09/19 05:30 05:30 WBC RBC Hgb 13.4 Hct 40.8 MCV MCH MCHC RDW Plt Count Add Manual Diff Total Counted Seg Neutrophils % Seg Neuts % (Manual) Band Neutrophils % Lymphocytes % (Manual) Reactive Lymphs % (Man) Monocytes % (Manual) Eosinophils % (Manual) Basophils % (Manual) Metamyelocytes % Myelocytes % Promyelocytes % Blast Cells % Nucleated RBC % Seg Neutrophils # Man Band Neutrophils # Lymphocytes # (Manual) Abs React Lymphs (Man) Monocytes # (Manual) Eosinophils # (Manual) Basophils # (Manual) Metamyelocytes # Myelocytes # Promyelocytes # Blast Cells # WBC Morphology Hypersegmented Neuts Hyposegmented Neuts Hypogranular Neuts Smudge Cells Toxic Granulation Toxic Vacuolation Dohle Bodies Pelger-Huet Anomaly Yenni Rods Platelet Estimate Clumped Platelets Plt Clumps, EDTA Large Platelets Giant Platelets Platelet Satelliting Plt Morphology Comment RBC Morphology Dimorphic RBCs Polychromasia Hypochromasia Poikilocytosis Anisocytosis Microcytosis Macrocytosis Spherocytes Pappenheimer Bodies Sickle Cells Target Cells Tear Drop Cells Ovalocytes Helmet Cells Clancy-Gu-Win Bodies Dimmitt Rings [place] Cells Bite Cells Crenated Cell Elliptocytes Acanthocytes (Spur) Rouleaux Hemoglobin C Crystals Schistocytes Malaria parasites Abdiel Bodies Hem Pathologist Commnt PT INR APTT Sodium Potassium Chloride Carbon Dioxide Anion Gap BUN Creatinine Estimated GFR BUN/Creatinine Ratio Glucose Calcium Total Bilirubin AST ALT Alkaline Phosphatase Total Creatine Kinase 123 CK-MB (CK-2) 1.8 CK-MB (CK-2) Rel Index 1.4 Troponin T < 0.010 Total Protein Albumin Albumin/Globulin Ratio Lipase HCG, Qual Blood Type Antibody Screen Assessment and Plan 1.GI bleed/hematemesis -H/H WNL (13.4/40.8)- monitor and transfuse as needed -no active signs of bleeding- HD stable -etiology- patient with multiple prior hospitalizations for similar symptoms over the past couple of years at multiple different locations with an extensive prior evaluation/work up with undergoing multiple EGDs (also including review of records from [place], cardiac evaluation and imaging) with last EGD in November is year (12/06/2018) that showed mild gastritis but otherwise negative (bx negative for H pylori). She also continues to report a hx of PE/DVT and metastatic breast CA after prior evaluation showing no evidence. 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 -no plan for repeat EGD unless overt signs of bleeding develops/drop in H/H -okay to start diet -continue PPI and supportive care -Miralax for constipation (likely 2/2 narcotic use; colonoscopy 2018 with polyp and hemorrhoids) -consider psych consult -no further GI recommendations at this time -will sign off, please call back if needed
--- NOTE | 2019-05-09 10:32 | Event Note ---
Date: 05/09/19 Cardiology consultation requested for evaluation of chest pain and HTN. AMI ruled out. Per [place] records, pt has h/o psych d/o - questionable factitious disorder v. Munchausen syndrome v. drug seeking behavior. She underwent cardiac PET MPI at [place] in 12/2017 which was negative. Echo done 12/2017 showed EF 60%, mod LVH, no significant valvular abnormalities. Psychiatric consultation is pending. In setting of psych d/o, recent negative cardiac w/u and AMI currently ruled out, will cancel cardiology consultation at this time and await psych recommendations. Please reconsult if cardiology consultation is still desired following psych evaluation. D/w attending physician, Dr. Reeder. Ani JI, BRANDON / DR. SALAS
[2019-05-09 12:44] LABS: Hematocrit 39.5 % (30.3-42.9); Hemoglobin 12.8 gm/dl (10.1-14.3)
[2019-05-09 14:21] VITALS: BP 185/105
--- NOTE | 2019-05-10 02:17 | Discharge Summary ---
Providers - Providers Date of Admission: 05/08/19 23:53 Date of discharge: 05/10/19 Attending physician: GUADALUPE MCINTOSH 05/09/19 06:00 Consult to Physician [CONS] Routine Comment: Consulting Provider: GEM ENRIQUEZ Physician Instructions: Reason For Exam: G.I BLEED 05/09/19 10:50 Consult to Mental Health [CONS] Routine Reason For Exam: mental heatlh Place consult to:: estevan Notified:: yes Was contact made?: Yes Time called:: 10:51 Primary care physician: PHOTOGRAPHER MODEL Hospitalization Condition: Good Hospital course: Patient is a 29-year-old female that originally presented to ED with chest pain left farm pain, hematemesis on Coumadin for recurrent PE. Patient also gave history of breast cancer stage III on chemotherapy. Upon initial presentation patient did not appear to be in any acute distress at all. Patient did show me a picture on the phone in which she had blood on a napkin. Initial workup at that time seem to be all normal. Patient had negative cardiac ice wins arms. Patient also had a CT angiogram which showed low probability for PE. When told that patient had a negative scan she mentioned that's what happened the last time I had a negative CAT scan but the next day had a pulmonary embolism again. Patient stated she was on Coumadin but I did not see any evidence of Coumadin. That morning chest pain had resolved and was at best a typical upon presentation and G.I. workup was most likely way to proceed. Upon continue workup it was discovered that patient had factitious versus Munchausen syndrome versus drug- seeking behavior. It was noted that patient appeared to never have breast cancer. Patient had extensive workup by saying gastroenterology group which showed multiple EGD's unremarkable. Just minimal gastritis. Patient also it had cardiac workup which is also unremarkable as well. Important to note that patient was receiving IV dilaud. At no time did patients pain on physical exam seem to be consistent with the amount of pain medications. When patients IV pain medications was discontinued patient decided to sign out against medical advice. Disposition: [id number] LEFT AGAINST MED ADVICE - Discharge Diagnoses (1) Munchausen syndrome Status: Acute (2) Acute chest pain Status: Acute (3) Hypertensive emergency Status: Acute Core Measure Documentation - Palliative Care Palliative Care/ Comfort Measures: Not Applicable - Core Measures Any of the following diagnoses?: none Exam - Constitutional Vitals: Temp Pulse Resp BP Pulse Ox 98.4 F 69 20 185/105 97 05/09/19 12:55 05/09/19 08:13 05/09/19 12:55 05/09/19 12:55 05/09/19 08:13 General appearance: Present: no acute distress, well-nourished - EENT Eyes: Present: PERRL ENT: hearing intact, clear oral mucosa - Neck Neck: Present: supple, normal ROM - Respiratory Respiratory effort: normal Respiratory: bilateral: CTA - Cardiovascular Heart Sounds: Present: S1 & S2. Absent: rub, click - Extremities Extremities: pulses symmetrical, No edema Peripheral Pulses: within normal limits - Abdominal General gastrointestinal: Present: soft, non-tender, non-distended, normal bowel sounds Female genitourinary: Present: normal - Integumentary Integumentary: Present: clear, warm, dry - Musculoskeletal Musculoskeletal: gait normal, strength equal bilaterally - Psychiatric Psychiatric: appropriate mood/affect, intact judgment & insight - Neurologic Neurologic: CNII-XII intact, moves all extremities Plan Follow up with: PRIMARY CARE, [Primary Care Provider] - 3-5 Days Forms: AMA Form, Accompanied Note
[2019-05-10] MEDS ORDERED: PROTONIX PO SCH (10:00)
[2019-05-10] MEDS ORDERED: AFLURIA QUAD 2019-2020 (3YR UP) IM ONE (12:00)
== END 2019-05-09 15:20 | disposition left against medical advice (07) | DRG 304 ==
LOC: ED 16:23 → 4A 23:53
PROVIDERS: ADMIT Internal Medicine; ATTEND Internal Medicine
DX: I16.1 Hypertensive emergency (principal); K29.71 Gastritis, unspecified, with bleeding; F68.10 Factitious disorder imposed on self, unspecified; R07.9 Chest pain, unspecified; G40.909 Epilepsy, unspecified, not intractable, without status epilepticus; K59.00 Constipation, unspecified; J45.909 Unspecified asthma, uncomplicated; I10 Essential (primary) hypertension; I25.10 Atherosclerotic heart disease of native coronary artery without angina pectoris; Z86.718 Personal history of other venous thrombosis and embolism; Z79.01 Long term (current) use of anticoagulants; Z86.711 Personal history of pulmonary embolism; Z86.74 Personal history of sudden cardiac arrest; Z90.49 Acquired absence of other specified parts of digestive tract; Z95.5 Presence of coronary angioplasty implant and graft; Z79.51 Long term (current) use of inhaled steroids; Z79.02 Long term (current) use of antithrombotics/antiplatelets; Z79.899 Other long term (current) drug therapy; Z88.5 Allergy status to narcotic agent; Z88.6 Allergy status to analgesic agent; Z88.0 Allergy status to penicillin
CPT/HCPCS: 36415; 71045; 78582; 80053; 82550; 82553; 83690; 84484; 84703; 85007; 85014; 85018; 85025; 85610; 85730; 86850; 86900; 86901; 93005; 93010; G0378; A9540; A9558; C9113; J0360; J1170; J1200; J3480; J7050

== ENCOUNTER 2019-08-26 05:10 | Emergency (ER) | payer SELFPAY ==
[2019-08-26 07:58] LABS: Hemoglobin 11.9 gm/dl (10.1-14.3); Mean Corpuscular HGB Conc 33 % (30-34); Mean Corpuscular Volume 81 fl (79-97); Platelet Count 201 K/mm3 (140-440); Red Blood Count 4.47 M/mm3 (3.65-5.03); Red Cell Distribution Width 15.8 % (13.2-15.2)
[2019-08-26 08:07] LABS: INR 0.9 (0.87-1.13)
[2019-08-26 08:08] LABS: Partial Thromboplastin Time 27.4 Sec. (24.2-36.6)
[2019-08-26 08:17] LABS: Albumin 4.5 g/dL (3.9-5); Blood Urea Nitrogen 10 mg/dL (7-17); Calcium 9.6 mg/dL (8.4-10.2); Hemolysis Index 21
--- NOTE | 2019-08-26 08:33 | Emergency Department Report ---
ED General Adult HPI - General Chief complaint: Back Pain/Injury Stated complaint: FALL/BLOOD IN URINE Time Seen by Provider: 08/26/19 08:19 Source: patient, RN notes reviewed, old records reviewed Mode of arrival: Ambulatory Limitations: No Limitations - History of Present Illness Initial comments: During the entire history and physical examination, I am decker operator and escorted by nurse Beny Tello. This patient was admitted to this hospital in 2019. She presented to this department with the complaint of chest pain, facial pain, hematemesis, endorsing that she was on Coumadin for recurrent pulmonary embolism, and also reported history of stage III breast cancer on chemotherapy Patient had an unremarkable workup, including an unremarkable CT angiogram. 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 It is documented that the patient appeared to never have breast cancer. Apparently, she's had extensive workup in the past by GI, with multiple EGDs, showing minimal gastritis. Patient also had prior cardiac workup, which was documented to be unremarkable. Apparently, the patient was receiving multiple doses of hydromorphone. The patient's pain medications were discontinued, the patient signed out AGAINST MEDICAL ADVICE Today, the patient presents to the ER with a complaint of paralumbar back pain, and bilateral anterior thigh numbness. She reports that she was walking, and tripped, and landed backwards onto her lower back. She also reports that she is having blood in her urine. The patient makes no complaints of extremity weakness, and does not endorse bladder or bowel retention, incontinence, saddle anesthesia. The patient's history is also inconsistent, as she states she was admitted to [facility] in 2019 multiple times. She also states that she follows with either a Dr. Yogesh Garza, and occasionally a Dr. Durga Smith, and that she is supposed to be on Coumadin, but has not been on Coumadin since April 2019, and then she says that she supposed to be on eliquis, but that she has not taken this for months either. The patient says that she had "a lot of stuff going on at home", and this is why she did not seek medical attention beforehand. -: Sudden Location: back, left, right, lower extremity Quality: aching Consistency: constant Improves with: rest Worsens with: movement - Related Data Home Medications Medication Instructions Recorded Confirmed Last Taken Albuterol Sulfate [Proventil Hfa] 6.7 gm IH PRN 05/09/19 05/09/19 Unknown Previous Rx's Medication Instructions Recorded Last Taken Type Metoprolol [Lopressor TAB] 37.5 mg PO BID #30 08/26/19 Unknown Rx carvediloL [Coreg] 12.5 mg PO BID #30 08/26/19 Unknown Rx levoFLOXacin [Levaquin TAB] 500 mg PO QDAY #7 tablet 08/26/19 Unknown Rx lisinopriL [Zestril TAB] 20 mg PO QDAY #14 08/26/19 Unknown Rx Allergies Allergy/AdvReac Type Severity Reaction Status Date / Time acetaminophen Allergy Angioedema Verified 02/04/18 17:46 ibuprofen Allergy Angioedema Verified 02/04/18 17:46 oxycodone [From Percocet] Allergy Hives Verified 02/04/18 17:46 Penicillins Allergy Hives Verified 02/04/18 17:46 tramadol Allergy Hives Verified 02/04/18 17:46 ED Review of Systems ROS: Stated complaint: FALL/BLOOD IN URINE Other details as noted in HPI Constitutional: denies: fever Eyes: denies: eye discharge ENT: denies: other Respiratory: denies: wheezing Cardiovascular: denies: syncope Gastrointestinal: denies: abdominal pain, nausea, vomiting Genitourinary: hematuria Musculoskeletal: back pain Neurological: numbness ED Past Medical Hx - Past Medical History Previous Medical History?: Yes Hx Pulmonary Embolism: Yes (DVTs on Coumadin & Lovenox) Hx of Cancer: Yes (Left Breast cancer with mets to spine) Hx Seizures: Yes Hx Asthma: Yes Additional medical history: DVT'S,PE-2018 x3 separate times, CAD, chemo and radiation [id number] 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, Has an IVC filter on right side - Surgical History Past Surgical History?: Yes Hx Cholecystectomy: Yes Hx Appendectomy: Yes Additional Surgical History: L-2 and L-3 cancerous lesion, ovarian cyst, left axillary lymph nodes removed, left breast lumpectomy, IVC filter - Social History Smoking Status: Never Smoker - Medications Home Medications: Home Medications Medication Instructions Recorded Confirmed Last Taken Type Albuterol Sulfate [Proventil Hfa] 6.7 gm IH PRN 05/09/19 05/09/19 Unknown History Metoprolol [Lopressor TAB] 37.5 mg PO BID #30 08/26/19 Unknown Rx carvediloL [Coreg] 12.5 mg PO BID #30 08/26/19 Unknown Rx levoFLOXacin [Levaquin TAB] 500 mg PO QDAY #7 tablet 08/26/19 Unknown Rx lisinopriL [Zestril TAB] 20 mg PO QDAY #14 08/26/19 Unknown Rx ED Physical Exam - General Limitations: No Limitations General appearance: alert, in no apparent distress - Head Head exam: Present: atraumatic, normocephalic - Eye Eye exam: Present: normal appearance, EOMI. Absent: nystagmus - ENT ENT exam: Present: normal exam, normal orophraynx, mucous membranes moist, normal external ear exam, other (visual acuity intact to finger counting in colo r perception at close distance) - Neck Neck exam: Present: normal inspection, full ROM. Absent: tenderness, meningismus - Respiratory Respiratory exam: Present: normal lung sounds bilaterally. Absent: respiratory distress - Cardiovascular Cardiovascular Exam: Present: regular rate, normal rhythm, normal heart sounds. Absent: bradycardia, tachycardia, irregular rhythm, systolic murmur, diastolic murmur, rubs, gallop - GI/Abdominal GI/Abdominal exam: Present: soft. Absent: distended, tenderness, guarding, rebound, rigid, pulsatile mass - Extremities Exam Extremities exam: Present: normal inspection, full ROM, other (2+ pulses noted in the bilateral upper and lower extremities. There is no long bony tenderness. The pelvis is stable. The muscular compartments are soft. There is no palpable cord. There is no redness, pus or streaking.). Absent: pedal edema, calf tenderness - Back Exam Back exam: Present: normal inspection, paraspinal tenderness. Absent: CVA tenderness (R), CVA tenderness (L) - Neurological Exam Neurological exam: Present: alert, oriented X3, normal gait, other (there is no facial droop. The tongue is midline. Extraocular movements are intact bilaterally. Tongue is midline, speech is fluid and sensible, hearing is intact. 5 out of 5 strength in 4 extremities. Sensation intact to light touch bilateral upper extremities. Sensation intact dependence in the bilateral lower extremities. There are downgoing plantar reflexes bilaterally. 2+ quadriceps reflex noted in the bilateral lower extremities. There is no lower extremity clonus.) - Psychiatric Psychiatric exam: Present: anxious - Skin Skin exam: Present: warm, dry, intact, normal color. Absent: rash ED Course Vital Signs 08/26/19 08/26/19 08/26/19 05:26 08:35 10:15 Temperature 98.5 F Pulse Rate 72 83 83 Respiratory 18 18 Rate Blood Pressure 186/118 242/156 Blood Pressure 246/147 [Right] O2 Sat by Pulse 98 99 Oximetry - Reevaluation(s) Reevaluation #1: 08/26/19 10:03 we requested medical records from [facility] Patient initially gave consents to have her medical records released from [facility], and then my marketing secretary informs me that [facility] medical records was contacted by the patient, who appropriately identified herself, and subsequently rescinded her permission from medical records released. Urinalysis is reviewed and appreciated. We will cover empirically with antibiotics. Elevated blood pressure is chronic. Her antihypertensive therapy was refilled. The patient can follow-up as an outpatient for her numerous chronic issues. ED Medical Decision Making - Lab Data Result diagrams: 08/26/19 07:29 08/26/19 07:29 Vital Signs 08/26/19 08/26/19 05:26 08:35 Temperature 98.5 F Pulse Rate 72 83 Respiratory 18 18 Rate Blood Pressure 186/118 Blood Pressure 246/147 [Right] O2 Sat by Pulse 98 99 Oximetry Lab Results 08/26/19 08/26/19 08/26/19 Range/Units 07:29 07:29 07:29 WBC 4.2 L (4.5-11.0) K/mm3 RBC 4.47 (3.65-5.03) M/mm3 Hgb 11.9 (10.1-14.3) gm/dl Hct 36.0 (30.3-42.9) % MCV 81 (79-97) fl MCH 27 L (28-32) pg MCHC 33 (30-34) % RDW 15.8 H (13.2-15.2) % Plt Count 201 (140-440) K/mm3 PT 12.2 (12.2-14.9) Sec. INR 0.90 (0.87-1.13) APTT 27.4 (24.2-36.6) Sec. Sodium 143 (137-145) mmol/L Potassium 3.5 L (3.6-5.0) mmol/L Chloride 101.4 (98-107) mmol/L Carbon Dioxide 24 (22-30) mmol/L Anion Gap 21 mmol/L BUN 10 (7-17) mg/dL Creatinine 0.9 (0.7-1.2) mg/dL Estimated GFR > 60 ml/min BUN/Creatinine Ratio 11 % Glucose 92 (65-100) mg/dL Calcium 9.6 (8.4-10.2) mg/dL Total Bilirubin 0.30 (0.1-1.2) mg/dL AST 22 (5-40) units/L ALT 24 (7-56) units/L Alkaline Phosphatase 48 (35-129) units/L Total Creatine Kinase (30-135) units/L Total Protein 8.4 H (6.3-8.2) g/dL Albumin 4.5 (3.9-5) g/dL Albumin/Globulin Ratio 1.2 % HCG, Qual (Negative) 08/26/19 08/26/19 Range/Units 07:29 07:29 WBC (4.5-11.0) K/mm3 RBC (3.65-5.03) M/mm3 Hgb (10.1-14.3) gm/dl Hct (30.3-42.9) % MCV (79-97) fl MCH (28-32) pg MCHC (30-34) % RDW (13.2-15.2) % Plt Count (140-440) K/mm3 PT (12.2-14.9) Sec. INR (0.87-1.13) APTT (24.2-36.6) Sec. Sodium (137-145) mmol/L Potassium (3.6-5.0) mmol/L Chloride (98-107) mmol/L Carbon Dioxide (22-30) mmol/L Anion Gap mmol/L BUN (7-17) mg/dL Creatinine (0.7-1.2) mg/dL Estimated GFR ml/min BUN/Creatinine Ratio % Glucose (65-100) mg/dL Calcium (8.4-10.2) mg/dL Total Bilirubin (0.1-1.2) mg/dL AST (5-40) units/L ALT (7-56) units/L Alkaline Phosphatase (35-129) units/L Total Creatine Kinase 277 H (30-135) units/L Total Protein (6.3-8.2) g/dL Albumin (3.9-5) g/dL Albumin/Globulin Ratio % HCG, Qual Negative (Negative) - Radiology Data Radiology results: report reviewed, image reviewed Noncontrast CT scan of the brain is negative for acute pathology - Medical Decision Making Differential diagnosis, including but not limited to: Lumbar radiculopathy, meralgia paresthetica, AAA, malingering, Munchhausen syndrome, factitious dis order, drug seeking tendencies Assessment and plan: 29-year-old female reporting inconsistent history, low mechanism back pain, with reported bilateral anterior quadricep numbness. The patient is afebrile with reassuring vital signs with the exception of chronic hypertension. The patient has equal pulses in the upper, lower extremities bilaterally, does not have a pulsatile abdominal mass, withdraws both of her lower extremities to pinch/noxious stimuli, has downgoing plantar reflexes, appropriate quadriceps reflexes, and no clonus. She appears quite comfortable and is playing and taxing on her cellular phone. Her screening laboratory studies are reviewed and are unremarkable. Her prior hospitalization from April 2019 is reviewed and appreciated. She does not endorse any fecal incontinence or retention. There is no endorsement of saddle anesthesia. Unfortunately, the patient reports that she is allergic/intolerant to acetaminophen, ibuprofen, oxycodone. Given her prior documentation, she does not appear to be an appropriate candidate for hydromorphone. I will refill her antihypertensive medications, with a 2 week prescription, and she'll need to follow up with outpatient primary care for her chronic elevated blood pressure. She is not homicidal or suicidal, she is sober at this time, and does not meet criteria for involuntary psychiatric hold or hospitalization /1013. The patient can follow up with outpatient neurology for her report of bilateral anterior quadricep numbness, and she can follow up with outpatient primary care, or for her complaint of hematuria. Critical care attestation.: If time is entered above; I have spent that time in minutes in the direct care of this critically ill patient, excluding procedure time. ED Disposition Clinical Impression: History of paresthesia, History of hematuria, Elevated blood pressure reading Disposition: TO HOME OR SELFCARE Is pt being admited?: No Does the pt Need Aspirin: No Condition: Stable Additional Instructions: Follow up with a primary care doctor within 7-10 days for complaints of anterior thigh numbness, acute on chronic lower back pain, hypertension, and complaint of blood in urine. Recommend the patient take her blood pressure medication as prescribed and directed. Long-term complications of hypertension and elevated blood pressure includes stroke, heart attack, disability, paralysis, loss of quality of life. Alternatively, patient may follow-up with a neurologist within the next 2 weeks for her bilateral anterior thigh numbness, and lower back pain. Patient may also follow-up with a urology specialist for her complaint of blood in the urine, within the next month. Return to the emergency room right away with new, worsening, different symptoms, or symptoms not present on the initial emergency room evaluation. Prescriptions: carvediloL [Coreg] 12.5 mg PO BID #30 levoFLOXacin [Levaquin TAB] 500 mg PO QDAY #7 tablet Metoprolol [Lopressor TAB] 37.5 mg PO BID #30 lisinopriL [Zestril TAB] 20 mg PO QDAY #14 Referrals: [facility] MD BETH [Primary Care Provider] - 3-5 Days JAMES SINGH MD [Referring] - 3-5 Days MAC MACHADO MD [Staff Physician] - 3-5 Days
--- NOTE | 2019-08-26 09:15 | Cat Scan Report ---
CT ABDOMEN AND PELVIS CONTRAST HISTORY: History of breast cancer with metastasis to L1 and L2. Recent trauma and pain surgical area. COMPARISON: No relevant comparison imaging. TECHNIQUE: Routine abdominal and pelvic CT exam performed without contrast. Lack of intravenous cont rast limits evaluation of the vascular and solid organs.. All CT scans at this location are performed using CT dose reduction for ALARA by means of automated exposure control. FINDINGS: CT ABDOMEN: Lung Bases: No significant abnormality. Liver: No significant abnormality. Biliary: Status post cholecystectomy. Normal bile ducts. Spleen: No significant abnormality. Unenlarged. Pancreas: No significant abnormality. Adrenals: No significant abnormality. Kidneys: No significant abnormality. Lymphatics: No lymphadenopathy. Vasculature: IVC filter is unremarkable. The rest of the vasculature is unremarkable. Bowel/Peritoneum: No significant abnormality. No free air. No free fluid. Normal appendix. CT PELVIC: : No significant abnormality. Normal uterus and ovaries. Lymphatics: No lymphadenopathy. Osseous Structures: No aggressive appearing osseous lesions. No fracture. The L1 and L2 vertebral bod ies are unremarkable. Additional Findings: None IMPRESSION: 1. No significant abnormality. 2. Status post cholecystectomy. 3. No evidence of metastatic disease. Signer Name: Jeffery Connelly MD Signed: 08/26/2019 9:11 AM Workstation Name: [id number]
[2019-08-26] MEDS ORDERED: LISINOPRIL 20 MG TAB PO STA (09:24)
[2019-08-26] MEDS ORDERED: METOPROLOL TARTRATE 25 MG TAB PO STA (09:24)
[2019-08-26 09:28] LABS: Alanine Aminotransferase 24 units/L (7-56); BUN/Creatinine Ratio 11
[2019-08-26] MEDS ORDERED: LIDOCAINE 5% 1 EACH PATCH TD ONE (09:30)
[2019-08-26 09:35] LABS: Bacteria,Urine 1+ /HPF (Negative); Bilirubin,Urine NEG (Negative); Blood,Urine LG (Negative); Color,Urine Yellow (Yellow); Mucus,Urine FEW /HPF; Urobilinogen,Urine < 2.0 mg/dL (<2.0)
[2019-08-26 10:22] VITALS: BP 242/156
== END 2019-08-26 10:31 | disposition home or self-care (01) ==
LOC: ED 05:10
DX: K92.0 Hematemesis (principal); R07.89 Other chest pain; R51 Headache; M54.5 Low back pain; R20.0 Anesthesia of skin; R03.0 Elevated blood-pressure reading, without diagnosis of hypertension; Z86.711 Personal history of pulmonary embolism; Z79.01 Long term (current) use of anticoagulants; Z85.3 Personal history of malignant neoplasm of breast; Z79.899 Other long term (current) drug therapy; Z88.0 Allergy status to penicillin; Z88.6 Allergy status to analgesic agent
CPT/HCPCS: 36415; 74176; 80053; 81001; 82550; 84703; 85027; 85610; 85730; 87086